=== PATIENT | female | born 1960 | race Two or more races ===

== ENCOUNTER 2017-10-31 10:22 | Outpatient (CLI) | payer OTHER | END 2017-10-31 11:00 | disposition home or self-care (01) | LOC: NUCLEAR 10:22 | DX: M81.0 Age-related osteoporosis without current pathological fracture (principal) ==

== ENCOUNTER 2017-10-31 10:48 | Outpatient (CLI) | payer OTHER | END 2017-10-31 10:54 | disposition home or self-care (01) | LOC: MAMO-SONO 10:48 | DX: Z12.31 Encounter for screening mammogram for malignant neoplasm of breast (principal); N64.4 Mastodynia; N63.10 Unspecified lump in the right breast, unspecified quadrant; N63.20 Unspecified lump in the left breast, unspecified quadrant ==

== ENCOUNTER 2018-02-03 10:55 | Emergency (ER) | payer OTHER ==
[~2018-02-03] VITALS: Ht 157.5 cm; Wt 72.6 kg
[2018-02-03] MEDS ORDERED: DICLOFENAC POTA50 MG PO (13:17)
[2018-02-03] MEDS ORDERED: SKELAXIN800 MG PO (13:17)
== END 2018-02-03 15:48 | disposition home or self-care (01) ==
LOC: ER 10:55
DX: M54.5 Low back pain (principal)

== ENCOUNTER 2018-06-03 07:53 | Outpatient (CLI) | payer OTHER ==
[~2018-06-03 07:53] MED LIST: DICLOFENAC POTA50 MG PO; SKELAXIN800 MG PO
== END 2018-06-03 09:14 | disposition home or self-care (01) ==
LOC: LAB 07:53
DX: D64.89 Other specified anemias (principal); E11.9 Type 2 diabetes mellitus without complications; E78.2 Mixed hyperlipidemia; K76.89 Other specified diseases of liver; E03.8 Other specified hypothyroidism; E55.9 Vitamin D deficiency, unspecified; R29.898 Other symptoms and signs involving the musculoskeletal system

== ENCOUNTER 2018-06-03 08:09 | Outpatient (CLI) | payer OTHER | END 2018-06-03 09:07 | disposition home or self-care (01) | LOC: SONOGRAMA 08:09 | DX: E04.1 Nontoxic single thyroid nodule (principal) ==

== ENCOUNTER 2019-08-25 08:00 | Outpatient (CLI) | payer OTHER | END 2019-08-25 15:00 | disposition home or self-care (01) | LOC: LAB 08:00 | DX: D64.89 Other specified anemias (principal); Z12.11 Encounter for screening for malignant neoplasm of colon; E03.8 Other specified hypothyroidism; N95.1 Menopausal and female climacteric states; I10 Essential (primary) hypertension; C51.9 Malignant neoplasm of vulva, unspecified; N30.00 Acute cystitis without hematuria; A64 Unspecified sexually transmitted disease; R97.8 Other abnormal tumor markers; R79.89 Other specified abnormal findings of blood chemistry; E55.9 Vitamin D deficiency, unspecified ==

== ENCOUNTER 2019-08-25 09:13 | Outpatient (CLI) | payer OTHER | END 2019-08-25 09:14 | disposition home or self-care (01) | LOC: MAMO-SONO 09:13 | DX: Z12.31 Encounter for screening mammogram for malignant neoplasm of breast (principal); Z87.898 Personal history of other specified conditions; N60.11 Diffuse cystic mastopathy of right breast; N60.12 Diffuse cystic mastopathy of left breast ==

== ENCOUNTER 2019-09-21 12:53 | Outpatient (CLI) | payer OTHER | END 2019-09-21 13:05 | disposition home or self-care (01) | LOC: SONOGRAMA 12:53 | DX: N60.12 Diffuse cystic mastopathy of left breast (principal); N60.11 Diffuse cystic mastopathy of right breast ==